=== PATIENT | male | born 1975 | race Hispanic/Latino ===

== ENCOUNTER 2018-10-01 08:36 | Emergency (ER) | payer OTHER ==
[~2018-10-01] VITALS: Ht 167.6 cm; Wt 117.9 kg
[2018-10-01 09:25] LABS: STREPTOCOCCUS GRP A ANTIGEN NEGATIVE (NEGATIVE)
[2018-10-01 09:31] LABS: INFLUENZAE A&B ANTIGEN (RAPID) POSITIVE FLU A (NEGATIVE)
--- NOTE | 2018-10-01 10:24 | Diagnostic Imaging Report ---
EXAMINATION: PA and lateral views of the chest. COMPARISON: None CLINICAL HISTORY: Cough, chest pain, body aches DISCUSSION: Lung volumes are low with linear opacities in the lower lobes. No pleural effusion or pneumothorax. Heart size and pulmonary vasculature are within normal limits when accounting for degree of inspiratory effort. IMPRESSION: Linear and patchy opacities in the lower lobes likely reflect atelectasis given low lung volumes. Pneumonia may have a similar appearance in the appropriate clinical context. Follow-up PA and lateral chest radiographs in 8 weeks are suggested to document resolution. Signed by: Dr. Mark Friedman M.D. on 10/01/2018 10:21 AM
--- NOTE | 2018-10-01 10:47 | NUR ---
CXR ordered at 0859, radiologist report at 1020
== END 2018-10-01 11:20 | disposition home or self-care (01) ==
LOC: ER 08:36
DX: R05 Cough (principal); J11.1 Influenza due to unidentified influenza virus with other respiratory manifestations
CPT/HCPCS: 71046; 83518; 87070; 87400; 99283